=== PATIENT | male | born 1995 | race Caucasian/White ===

== ENCOUNTER 2017-05-26 17:13 | Emergency (ER) | payer MEDICAID ==
[~2017-05-26] VITALS: Ht 182.9 cm; Wt 100.0 kg
[2017-05-26 17:25] VITALS: BP 149/84; PULSE 93; RESP 18; TEMP 98.6; O2SAT 99
[2017-05-26] MEDS ORDERED: ALBU6.7H INH (17:44)
[2017-05-26] MEDS ORDERED: LEVO50TA4 PO (17:44)
--- NOTE | 2017-05-26 17:46 | PD ---
HPI Chief Complaint: Injury Time Seen by Provider: 17:40 Travel History International Travel<30 days: No Contact w/Intl Traveler<30days: No Traveled to known affect area: No History of Present Illness HPI 21yo M with PMH of asthma and hypothyroidism presents to the ED with c/o right knee pain for about 30 minutes. Said he was sitting on the couch and he bend his right knee and now he is not able to straighten it because of pain. Said it has happened before and it got better on its own. Did not take anything for pain. Denies any fever, chest pain, sob, n/v, abdominal pain, focal weakness or numbness. PFSH Social History Tobacco Use: No Allergies-Medications (Allergen,Severity, Reaction): Coded Allergies: No Known Allergies (Verified Allergy, Unknown, 05/26/17) Reported Meds & Prescriptions Reported Meds & Active Scripts Active Tylenol (Acetaminophen) 325 Mg Tab 650 Mg PO Q6H PRN Reported Proventil Hfa 6.7 GM Inh (Albuterol Sulfate) 90 Mcg/Act Aer 2 Puff INH Q4-6H PRN Levothyroxine (Levothyroxine Sodium) 50 Mcg Tab 50 Mcg PO DAILY Review of Systems Except as stated in HPI: all other systems reviewed are Neg Physical Exam Narrative GENERAL: 21yo M in mild distress. SKIN: Focused skin assessment warm/dry. HEAD: Atraumatic. Normocephalic. EYES: Pupils equal and round. No scleral icterus. No injection or drainage. CARDIOVASCULAR: Regular rate and rhythm. No murmur appreciated. RESPIRATORY: No accessory muscle use. Clear to auscultation. Breath sounds equal bilaterally. GASTROINTESTINAL: Abdomen soft, non-tender, nondistended. MUSCULOSKELETAL: Right knee: In full flexion. No erythema or edema. Not hot to touch. +TTP patella tendon. Distal pulses 2+. Sensation intact. Pt will not actively or passively extend his knee. No hip ttp. No signs of trauma. NEUROLOGICAL: Awake and alert. No obvious cranial nerve deficits. Motor grossly within normal limits. Normal speech. PSYCHIATRIC: Appropriate mood and affect; insight and judgment normal. Data Data Last Documented VS Vital Signs Date Time Temp Pulse Resp B/P (MAP) Pulse Ox O2 Delivery O2 Flow Rate FiO2 05/26/17 18:34 05/26/17 17:25 98.6 93 18 99 Room Air Orders Orders Knee, Ltd (1 Or 2vws) (05/26/17 ) Diazepam (Valium) (05/26/17 18:00) Ketorolac Inj (Toradol Inj) (05/26/17 18:00) Ed Discharge Order (05/26/17 18:29) [facility] Medical Decision Making Medical Screen Exam Complete: Yes Emergency Medical Condition: Yes Differential Diagnosis Musculoskeletal pain vs. muscle cramps vs. dislocation vs. conversion disorder Narrative Course 21yo M presents to the ED with c/o right knee pain. Patient presents with right knee in flexion and said he cant extend it. Pt has not trauma, just bend his knee while sitting. States this has happened before. Xray of right knee showed no acute bony findings. Alignment satisfactory. Pt given toradol and valium. He was reevaluated after medications and can now fully extend without pain. FROM in right knee. Neurovascular intact. Pt ambulating in the ED without pain or assistance. Return precautions given. Diagnosis Primary Impression: Right knee pain Qualified Codes: M25.561 - Pain in right knee Patient Instructions: General Instructions Departure Forms: Tests/Procedures Additional Instructions: Please follow up with your primary care physician in 3-7 days. Return to the ED if symptoms worsen. Med/Other Pt SpecificInfo: Prescription(s) given Scripts Acetaminophen (Tylenol) 325 Mg Tab 650 MG PO Q6H Y for PAIN SCALE 1 TO 4, #20 TAB 0 Refills Prov: SmithYana wilson 05/26/17 Disposition: 01 DISCHARGE HOME Condition: Stable Yana Smith DO May 26, 2017 17:46
[2017-05-26] MEDS ORDERED: DIAZEPAM 5 MG TAB PO ONE (18:00)
[2017-05-26] MEDS ORDERED: KETOROLAC TROMETHAMINE 60 MG/2 ML (IM) VIAL IM ONE (18:00)
--- NOTE | 2017-05-26 18:22 | RADRPT ---
EXAM DATE/TIME: 05/26/2017 18:39 [facility] COMPARISON: No previous studies available for comparison. INDICATIONS : Patient states they were sitting in chair and right knee locked up. Complains of right knee pain and states they can not straighten right knee. MEDICAL HISTORY : None. SURGICAL HISTORY : None. ENCOUNTER: Initial ACUITY: 1 day PAIN SCORE: 10/10 LOCATION: Right Knee FINDINGS: The knee is imaged in extreme flexion. Grossly, the alignment is otherwise satisfactory. There is no definite fracture or joint effusion. CONCLUSION: No acute bony findings Roosevelt King MD on May 26, 2017 at 18:19 Board Certified Radiologist. This report was verified electronically.
[2017-05-26] MEDS ORDERED: TYLE325T PO (18:29)
== END 2017-05-26 18:34 | disposition home or self-care (01) ==
LOC: NEPD 17:13
DX: M25.561 Pain in right knee (principal); J45.909 Unspecified asthma, uncomplicated; E03.9 Hypothyroidism, unspecified; Z79.899 Other long term (current) drug therapy
CPT/HCPCS: 73560; 96372; 99284; J1885

== ENCOUNTER 2017-11-12 19:00 | Emergency (ER) | payer MEDICAID ==
[~2017-11-12 19:00] MED LIST: ALBU6.7H INH; LEVO50TA4 PO; TYLE325T PO
[2017-11-12 19:47] VITALS: BP 146/89; PULSE 74; RESP 16; TEMP 98.5; O2SAT 99
== END 2017-11-12 21:34 | disposition left against medical advice (07) ==
LOC: NED 19:00
DX: Z53.21 Procedure and treatment not carried out due to patient leaving prior to being seen by health care provider (principal)
CPT/HCPCS: 99281